=== PATIENT | male | born 1975 | race African-American/Black ===

== ENCOUNTER 2016-07-17 16:25 | Emergency (ER) | payer OTHER, MEDICARE ==
[~2016-07-17] VITALS: Ht 185.4 cm; Wt 99.8 kg
[~2016-07-17 16:25] MED LIST: ASPIRIN EC81 M1 PO; FLEXERIL 5MG TAB5 MG PO; FOLIC ACID1 M1 PO; LOSARTAN POTASS25 MG PO; OXYCODONE5 MG PO; ULTRAM50 M1 PO
--- NOTE | 2016-07-17 17:20 | RADIOLOGY REPORT ---
EXAMINATION: XR ANKLE, LEFT CLINICAL INFORMATION: Pain and swelling COMPARISON: None TECHNIQUE: AP, lateral, and mortise views of the left ankle. FINDINGS: There is no evidence of acute fracture or dislocation. Subcortical lucencies and sclerotic changes noted in the talus. Differential possibility includes osteochondral injury with surrounding sclerosis. Degenerative changes with osteophyte formations and decrease joint space noted in the talonavicular joint. Soft tissue swelling surrounding the ankle. IMPRESSION: Lucent foci of sclerosis involving the talar bone may represent osteochondral injury. Lucent bone lesions with surrounding sclerosis are included in the differential possibility. No acute osseous abnormality. Soft tissue swelling.
[2016-07-17] MEDS ORDERED: PERCOCET 5-3251 EACH PO (19:25)
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
[2016-07-17] MEDS ORDERED: BUTALB-ACETAMI1 EACH PO (19:40)
[2016-07-17 19:57] VITALS: BP 138/73
== END 2016-07-17 19:58 ==
LOC: ERH 16:25
DX: S93.602A Unspecified sprain of left foot, initial encounter (principal); M93.972 Osteochondropathy, unspecified, left ankle and foot; X58.XXXA Exposure to other specified factors, initial encounter; Y92.9 Unspecified place or not applicable; Y93.9 Activity, unspecified
CPT/HCPCS: 73610-LT

== ENCOUNTER 2017-11-18 14:24 | Inpatient (IN) | payer OTHER, MEDICARE ==
[~2017-11-18] VITALS: Ht 185.4 cm; Wt 84.9 kg
[~2017-11-18 14:24] MED LIST changes: +BUTALB-ACETAMI1 EACH PO; +CYCLOBENZAPRINE10 M1 PO; +MARI PO; +PERCOCET 5-3251 EACH PO
--- NOTE | 2017-11-18 14:54 | ED AMS/SEIZURE/WEAK/DIZZY ---
History of Present Illness General Chief Complaint: Altered Mental Status Stated Complaint: AMS Source: patient Exam Limitations: clinical condition Vital Signs & Intake/Output Vital Signs & Intake/Output Vital Signs Date Time Temp Pulse Resp B/P B/P Pulse O2 O2 Flow FiO2 Mean Ox Delivery Rate 11/18 2030 97 Room Air 11/18 1829 99.6 117 19 166/77 100 Nasal 1.5L Cannula 11/18 1656 98.9 119 17 155/74 96 Nasal 2.0L Cannula 11/18 1541 100.2 122 11/18 1434 101.7 138 24 138/76 92 Nasal 2.0L Cannula Allergies Coded Allergies: ibuprofen (From MOTRIN) (GI 12/17/16) propofol (HARD TO WAKE UP 07/17/16) Reconcile Medications Aspirin (Ecotrin*) 81 MG TABLET.DR 1 TAB PO DAILY HEART/BLOOD (Reported) Cannabis (Marijuana Oil) 1 amp AMP 1 A PO AD PRN SICKLE CELL ANEMIA (Reported ) Cyclobenzaprine HCl 10 MG TABLET 1 TAB PO Q8P PRN PAIN Folic Acid 1 MG TABLET 1 TAB PO DAILY SUPPLEMENT (Reported) Triage Note: PT BIBA FROM HOME C/C AMS, LETHARGY, AGGITATION SINCE SATURDAY. HX OF SICKLE CELL ANEMIA. PER EMS PT LIVES WITH ROOMMATE WHO STATES PATIENT BEHAVES IN THIS MANNER DURING SICKLE CELL CRISIS. PT UNABLE TO VERBALIZE COMPLAINTS AT THIS TIME. PER EMS PT WAS COMBATIVE AND UNCOOPERATIVE AT HOME, GIVEN 5 MG IM VERSED PRIOR TO LEAVING HOME. ON PEER BY PD PER DR. TRUONG INSTRUCTIONS. SKIN HOT AND DRY, TEMP 101.7. Triage Nurses Notes Reviewed? yes Onset: Gradual HPI: 42yo male with hx of sickle cell disease brought in by ambulance from home for altered mental status lethargy, agitation. Patient was medicated with Versed in route due to his agitation. Patient's roomate was concerned about patient's behaviour however patient was uncooperative and brought here on PEER per Dr. Truong. HPI is limited d/t patient's AMS, he cannot provide a history. He arrives tachycardic, hypoxic and febrile. (Elda NAPOLES,Sarah Rodriguez) Past History Travel History Traveled to [place] past 21 day No Medical History Any Pertinent Medical History? see below for history Neurological: ANEURYSM EENT: NONE Cardiovascular: PULMONARY HTN Respiratory: NONE Gastrointestinal: NONE Hepatic: "SICKLE CELL STUFF" Renal: NONE Musculoskeletal: CHRONIC PAIN Psychiatric: NONE Endocrine: NONE Blood Disorders: sickle cell disease Cancer(s): NONE Surgical History Surgical History: non-contributory Psychosocial History Who do you live with Friend What is your primary language [place] Tobacco Use: Cognitive Impairment Family History Hx Contributory? No (Sarah Ley) Review of Systems Review of Systems Constitutional: Reports: see HPI. EENTM: Reports: no symptoms. Respiratory: Reports: no symptoms. Cardiovascular: Reports: see HPI. GI: Reports: no symptoms. Genitourinary: Reports: no symptoms. Musculoskeletal: Reports: no symptoms. Skin: Reports: no symptoms. Neurological/Psychological: Reports: see HPI. Hematologic/Endocrine: Reports: no symptoms. Immunologic/Allergic: Reports: no symptoms. All Other Systems: Reviewed and Negative Comments ROS limited d/t AMS (Sarah Ley) Physical Exam Physical Exam General Appearance: no apparent distress, lethargic Head: atraumatic, normal appearance Eyes: Bilateral: normal appearance, PERRL, EOMI. Ears, Nose, Throat: normal ENT inspection, hearing grossly normal Neck: normal inspection, supple, full range of motion Respiratory: normal breath sounds, no respiratory distress, lungs clear Cardiovascular: tachycardia Gastrointestinal: normal bowel sounds, soft, non-tender, no organomegaly Back: normal inspection, normal range of motion Extremities: normal range of motion Neurologic/Psych: awake, oriented to person only, falls asleep during questioning, unable to participate in exam Skin: intact, normal color, warm/dry Comments: EXAM limited d/t AMS Core Measures ACS in differential dx? Yes CVA/TIA Diagnosis No Sepsis Present: No Sepsis Focused Exam Completed? No (Sarah Ley) Progress Differential Diagnosis: arrythmia, alcohol intoxication, anemia, CVA/stroke, dehydration, encephalitis, electrolyte imbalance, hypoxia, intracranial Hem., intracranial mass/tumor, pneumonia, sepsis, UTI/pyelo Plan of Care: Orders Procedure Date/time Status Nothing by Mouth 11/19 B Active Patient Data 11/18 1933 Active Saline Lock 11/18 1912 Active Misc Message 11/18 1912 Active ED Holding Orders 11/18 1912 Active Admit to inpatient 11/18 1912 Active Code Status 11/18 1912 Active Intake & Output 11/18 1625 Active Add-on Test (ER Only) 11/18 1616 Active ARTERIAL BLOOD GAS (GEN) 11/18 1507 Complete Add-on Test (ER Only) 11/18 1501 Active URINE DRUG SCREEN FOR ER ONLY 11/18 1501 Complete Pathway - chart 11/18 1454 Active Vital Signs 11/18 1454 Active CULTURE,URINE 11/18 1453 Active BLOOD CULTURE 11/18 1453 Active URINALYSIS 11/18 1453 Complete LACTIC ACID 11/18 1453 Complete COMPREHENSIVE METABOLIC PANEL 11/18 1453 Complete CBC WITHOUT DIFFERENTIAL 11/18 1453 Complete TROPONIN LEVEL 11/18 1450 Complete PARTIAL THROMBOPLASTIN TIME 11/18 1450 Complete PROTHROMBIN TIME 11/18 1450 Complete ETHANOL 11/18 1450 Complete TYPE & SCREEN (NOT X-MATCH) 11/18 1450 Active EKG 11/18 1439 Active Current Medications Sig/Jaquelin Start time Last Medication Dose Stop Time Status Admin Sodium Chloride 2,449.41 ML ONCE 11/18 1500 AC 11/18 (Normal Saline 0.9%) 1513 Laboratory Tests 11/18/17 1753: Lactic Acid Cancelled 11/18/17 1705: Urine Opiates Screen 221, Methadone Screen < 40, Barbiturate Screen < 60, Ur Phencyclidine Scrn < 6.00, Amphetamines Screen < 100, U Benzodiazepines Scrn > 800 H, Urine Cocaine Screen < 50, Urine Cannabis Screen > 80.00 H, Urinalysis LIGHT H, Urine Color YEL, Urine Clarity HAZY H, Urine pH 6.0, Ur Specific [place] 1.020, Urine Protein 100 H, Urine Ketones NEG, Urine Nitrite NEG, Urine Bilirubin NEG@ICTO, Urine Urobilinogen 2.0 H, Ur Leukocyte Esterase NEG, Ur Microscopic SEDIMENT EXAMINED, Urine RBC 3-5, Urine WBC RARE, Ur Epithelial Cells FEW, Hyaline Casts RARE H, Granular Casts FEW H, Urine Hemoglobin SMALL H, Urine Glucose NEG 11/18/17 1535: pH 7.44, pCO2 25 L, pO2 91, HCO3 17 L, ABG O2 Sat (Measured) 91.0 L, P-50 ( Temp Corrected) Y, Carboxyhemoglobin 2.6, O2 Concentration % NC, Temperature 100.2 H, O2 Delivery Method 2L, Phlebotomy Draw Site RIGHT RADIAL 11/18/17 1450: Anion Gap 13, Estimated GFR 47 L, BUN/Creatinine Ratio 17.5, Glucose 103 H, Lactic Acid 1.2, Calcium 9.0, Total Bilirubin 4.7 H, AST 50, ALT 30, Alkaline Phosphatase 216 H, Troponin I 0.04, Total Protein 7.8, Albumin 3.8, Globulin 4.0, Albumin/Globulin Ratio 1.0 L, PT 15.2 H, INR 1.39 H, APTT 28, CBC w Diff MAN DIFF ORDERED, RBC 2.34 L, MCV 88.5, MCH 30.9, MCHC 34.9, RDW 22.1 H, MPV 8.6, Segmented Neutrophils 84 H, Band Neutrophils 1, Lymphocytes 9 L, Monocytes 6, Nucleated RBCs 2 H, Platelet Estimate INCREASED, Polychromasia 2+, Hypochromic-Microcytic 2+, Poikilocytosis 3+, Basophilic Stippling 1+, Anisocytosis 3+, Schistocytes , Serum Alcohol < 10.0 Microbiology 11/18 1732 BLOOD: Blood Culture - RECD 11/18 1705 URINE ROUT: Urine Culture - RECD 11/18 1500 BLOOD: Blood Culture - RECD Patient's chest x-ray shows right lower lobe pneumonia. Labs show leukocytosis. Patient has stable anemia. He also has stable elevated bilirubin. Patient has mild acute kidney injury compared to prior studies. Patient given sepsis protocol fluid hydration given abnormal vital signs upon presentation of her lactic acid is stable. Patient started on IV antibiotics for pneumonia. His EKG cyst sinus tachycardia with nonspecific changes. For this reason patient admitted to telemetry. Dr. Truong spoke with Dr. Ortiz regarding admission. Diagnostic Imaging: Viewed by Me: Radiology Read, CT Scan. Discussed w/RAD: Radiology Read, CT Scan. Radiology Impression: PATIENT: CAROL KISER PRESENT AGE: 42 PATIENT ACCOUNT NO: [id number] : 73 LOCATION: [facility] ORDERING PHYSICIAN: Sarah NAPOLES SERVICE DATE: 11/18/17 EXAM TYPE: CAT - CT HEAD WO IV CONTRAST EXAMINATION: CT HEAD WITHOUT CONTRAST CLINICAL INFORMATION: Altered mental status. COMPARISON: CT head 01/24/2011. TECHNIQUE: Contiguous axial imaging was performed from the skull base to vertex without intravenous administration of contrast. DLP: 780.8 mGy-cm FINDINGS: Surgical clip at the skull base to the left of the sella turcica. There is no evidence of acute intracranial hemorrhage or territorial infarction. No abnormal mass effect or midline shift is seen. Yu to white matter differentiation is well preserved. No extra-axial fluid collections are identified. The ventricles are normal in size. There is no abnormal attenuation within the brain parenchyma. The osseous structures and soft tissues are normal. The mastoid air cells and visualized portions of the paranasal sinuses are well aerated. IMPRESSION: No acute intracranial pathology. DICTATED BY: Bandar Whelan MD DATE/TIME DICTATED:1631 TOLL LINE INSPECTOR:MARK DATE/TIME TRANSCRIBED:11/18/171631 CONFIDENTIAL, DO NOT COPY WITHOUT APPROPRIATE AUTHORIZATION. <Electronically signed in Other Vendor System> SIGNED BY: Bandar Whelan MD 11/18/171638 CXR Impression: PATIENT: CAROL KISER PRESENT AGE: 42 PATIENT ACCOUNT NO: [id number] : 73 LOCATION: [facility] ORDERING PHYSICIAN: Sarah NAPOLES SERVICE DATE: 11/18/17 EXAM TYPE: RAD - XRY-CHEST XRAY, TWO VIEWS EXAMINATION: CHEST 2 VIEWS CLINICAL INFORMATION: Fever. Tachycardia. COMPARISON: 11/09/2017. TECHNIQUE: AP seated frontal and lateral views of the chest were obtained. FINDINGS: The cardiac silhouette is enlarged, though stable. There is a right lower lobe infiltrate. There are likely trace bilateral pleural effusions. The osseous structures are stable with a right humeral prosthesis identified. IMPRESSION: Right lower lobe infiltrate concerning for pneumonia. Recommendation is for a followup chest series to be obtained following treatment and/or resolution of symptoms to assure resolution of this appearance. DICTATED BY: Jose Luis Herbert MD DATE/TIME DICTATED:11/18/171652 TOLL LINE INSPECTOR:MARK DATE/TIME TRANSCRIBED:11/18/171652 CONFIDENTIAL, DO NOT COPY WITHOUT APPROPRIATE AUTHORIZATION. <Electronically signed in Other Vendor System> SIGNED BY: Jose Luis Herbert MD 11/18/171657 Initial ED EKG: sinus tachycardia @131bpm, nonspecific ST changes (Sarah Ley) Departure Departure Disposition: STILL A PATIENT Condition: Stable Clinical Impression Primary Impression: Pneumonia Qualifiers: Pneumonia type: due to unspecified organism Laterality: right Lung location: lower lobe of lung Qualified Code: J18.1 - Lobar pneumonia, unspecified organism Secondary Impressions: Acute electrocardiogram changes Acute kidney injury Altered mental status Qualifiers: Altered mental status type: unspecified Qualified Code: R41.82 - Altered mental status, unspecified Referrals: Patient Has No Primary Care Dr (PCP/Family) Departure Forms: Customer Survey General Discharge Information Admission Note Spoke With: Albertina Ohara MD Documentation of Exam: Documentation of any treatments & extenuating circumstances including Concerns Regarding Discharge (functional status, medication knowledge or non-compliance, living conditions, etc.) that warrant an admission rather than observation: [ Pneumonia with elevated white blood cells, persistent tachycardia, fever requiring IV antibiotics, telemetry monitoring for EKG changes, IV fluids for acute kidney injury for premature discharge medically unsafe] (Elda NAPOLES,Sarah Rodriguez) PA/OBIEE REPORT DEVELOPER Co-Sign Statement Statement: ED Attending supervision documentation- [X] I saw and evaluated the patient. I have also reviewed all the pertinent lab results and diagnostic results. I agree with the findings and the plan of care as documented in the PA's/OBIEE REPORT DEVELOPER's documentation. [] I have reviewed the ED Record and agree with the PA's/OBIEE REPORT DEVELOPER's documentation. [] Additions or exceptions (if any) to the PAs/OBIEE REPORT DEVELOPER's note and plan are summarized below: [] 42-year-old male presented to the emergency department with altered mental status, history of sickle cell disease, he had a be transported by EMS and police to the ED. He is febrile, tachycardic, chest x-ray concerning for lower lobe pneumonia. On my evaluation he was awake and responded appropriately. Heart rate has improved with IV fluids. He was admitted for IV antibiotics, and treatment of sickle cell crisis. (Sherman Truong DO)
[2017-11-18 15:08] LABS: HEMATOCRIT 20.7 % (42-52); MEAN CORPUSCULAR HGB 30.9 PG (27.0-31.0); MEAN CORPUSCULAR HGB CONC 34.9 G/DL (33.0-37.0); MEAN CORPUSCULAR VOLUME 88.5 FL (80.0-94.0); MEAN PLATELET VOLUME 8.6 FL (7.4-10.4); PLATELET COUNT 512 /CUMM (130-400); RBC DISTRIBUTION WIDTH 22.1 % (11.5-14.5); RED BLOOD CELL CT 2.34 /CUMM (4.70-6.10); WHITE BLOOD CELL COUNT 14.3 /CUMM (4.8-10.8)
[2017-11-18 15:29] LABS: PT 15.2 SEC (9.4-12.5); PTT 28 SEC (25-37)
--- NOTE | 2017-11-18 16:39 | CT SCAN REPORT ---
EXAMINATION: CT HEAD WITHOUT CONTRAST CLINICAL INFORMATION: Altered mental status. COMPARISON: CT head 01/24/2011. TECHNIQUE: Contiguous axial imaging was performed from the skull base to vertex without intravenous administration of contrast. DLP: 780.8 mGy-cm FINDINGS: Surgical clip at the skull base to the left of the sella turcica. There is no evidence of acute intracranial hemorrhage or territorial infarction. No abnormal mass effect or midline shift is seen. Yu to white matter differentiation is well preserved. No extra-axial fluid collections are identified. The ventricles are normal in size. There is no abnormal attenuation within the brain parenchyma. The osseous structures and soft tissues are normal. The mastoid air cells and visualized portions of the paranasal sinuses are well aerated. IMPRESSION: No acute intracranial pathology.
--- NOTE | 2017-11-18 16:58 | RADIOLOGY REPORT ---
EXAMINATION: CHEST 2 VIEWS CLINICAL INFORMATION: Fever. Tachycardia. COMPARISON: 11/09/2017. TECHNIQUE: AP seated frontal and lateral views of the chest were obtained. FINDINGS: The cardiac silhouette is enlarged, though stable. There is a right lower lobe infiltrate. There are likely trace bilateral pleural effusions. The osseous structures are stable with a right humeral prosthesis identified. IMPRESSION: Right lower lobe infiltrate concerning for pneumonia. Recommendation is for a followup chest series to be obtained following treatment and/or resolution of symptoms to assure resolution of this appearance.
--- NOTE | 2017-11-18 19:50 | History & Physical ---
Tyree Lynch 11/18/171948: General Information and HPI MD Statement: I have seen and personally examined CAROL KISER and documented this H&P. The patient is a 42 year old M who presented with a patient stated chief complaint of [altered mental status and agitation]. Source of Information: patient Exam Limitations: unable to give history History of Present Illness: The patient is a 42-year-old woman with past medical history significant for sickle cell anemia, hypertension, chronic pain, who has been brought in by ambulance due to altered mental status, lethargy, and agitation which was noticed by a friend During the interview patient was confused and was unable to give history. Based on the data collected from the reports from emergency room, the patient has arrived with tachycardia, fever, and decreased O2 saturation. During the interview and physical examination the patient was confused, he answers "okay" to all the questions. Per reports from the ER staff, his family came to the ER shortly but left even before giving information to healthcare providers. Imaging: Head CT scan: Showed no acute pathology Chest x-ray: Showed right lower lobe infiltration which is consistent with pneumonia EKG: Normal sinus rhythm, heart rate 131, left ventricular hypertrophy, T inversion in V5 V6 Allergies/Medications Allergies: Coded Allergies: ibuprofen (From MOTRIN) (GI 12/17/16) propofol (HARD TO WAKE UP 07/17/16) Home Med list Aspirin (Ecotrin*) 81 MG TABLET.DR 1 TAB PO DAILY HEART/BLOOD (Reported) Cannabis (Marijuana Oil) 1 amp AMP 1 A PO AD PRN SICKLE CELL ANEMIA (Reported ) Cyclobenzaprine HCl 10 MG TABLET 1 TAB PO Q8P PRN PAIN Folic Acid 1 MG TABLET 1 TAB PO DAILY SUPPLEMENT (Reported) Compliance With Home Meds: UNKNOWN Past History Travel History Traveled to [place] past 21 day No Medical History Neurological: ANEURYSM EENT: NONE Cardiovascular: PULMONARY HTN Respiratory: NONE Gastrointestinal: NONE Hepatic: "SICKLE CELL STUFF" Renal: NONE Musculoskeletal: CHRONIC PAIN Psychiatric: NONE Endocrine: NONE Blood Disorders: sickle cell disease Cancer(s): NONE Surgical History Surgical History: non-contributory Review of Systems Review of Systems Constitutional: Reports: see HPI. EENTM: Reports: see HPI. Cardiovascular: Reports: see HPI. Respiratory: Reports: see HPI. GI: Reports: see HPI. Genitourinary: Reports: see HPI. Musculoskeletal: Reports: see HPI. Skin: Reports: see HPI. Neurological/Psychological: Reports: see HPI. Hematologic/Endocrine: Reports: see HPI. Immunologic/Allergic: Reports: see HPI. Exam & Diagnostic Data Last 24 Hrs of Vital Signs/I&O Vital Signs Date Time Temp Pulse Resp B/P B/P Pulse O2 O2 Flow FiO2 Mean Ox Delivery Rate 11/19 0624 98 Nasal 2.0L Cannula 11/19 0241 99.8 11/19 0233 96 Nasal 2.0L Cannula 11/19 0200 99.8 113 22 122/58 97 Nasal 2.0L Cannula 11/19 0135 98.9 113 18 125/65 100 Room Air 11/18 2226 99.5 114 18 155/70 91 Room Air 11/18 2031 97 Room Air 11/18 1829 99.6 117 19 166/77 100 Nasal 1.5L Cannula 11/18 1656 98.9 119 17 155/74 96 Nasal 2.0L Cannula 11/18 1541 100.2 122 11/18 1434 101.7 138 24 138/76 92 Nasal 2.0L Cannula Intake & Output 11/19 1600 11/19 0800 11/19 0000 Intake Total 946 Output Total Balance 946 Intake, IV 946 Number 0 Bowel Movements Patient 193 lb Weight Weight Bed scale Measurement Method Physical Exam General Appearance Drowzy, not orient, does not follow commands Skin No Rashes Skin Temp/Moisture Exam: Warm/Dry Sepsis Skin Exam (color): Normal for Ethnicity HEENT not co-operative Neck Supple, No JVD Cardiovascular Regular Rate, Normal S1, Normal S2, tricuspid 3/6 murmur Lungs right lower lobe crackles Abdomen Normal Bowel Sounds, Soft Neurological not co-operative, MP 4/5 x 4, does not follow commands, does not repeat sentences. Extremities Normal Pulses Vascular Normal Pulses, Pulses Symmetrical Sepsis Peripheral Pulse Location: Dorsalis Pedis Sepsis Peripheral Pulse Exam: Normal Sepsis Cap Refill Exam: <2 Sec Assessment/Plan Assessment: He is a 42-year-old man with past medical history significant for sickle cell anemia who was brought in ER by his roommate for evaluation of altered mental status, agitation, and lethargy. During the interview and physical exam the patient was drowsy, was not able to follow comments, or repeat a sentence. He was tachycardic around 120s, febrile with a temperature of 101.7. He had confusion with decreased breathing sounds in right lower lobe and bibasilar crackles. He had leukocytosis of 14.3, hemoglobin was low to 7.2 with a hematocrit of 20.7. Hyponatremia of 130, with a high creatinine of 1.6. Troponin was 0.04. His urine toxicology was positive for marijuana, opiates, benzodiazepines. His head CT scan was unremarkable, while his chest x-ray showed right lower lobe consolidation, which is probably pneumonia. Based on sepsis criteria and on the background of his sickle cell anemia patient has fever, tachycardia, and leukocytosis and he meets the criteria for sepsis. Patient is placed on ceftazidime and vancomycin. He is admitted to telemetry for monitoring, IV fluids and antibiotics, and hematology consultation. Problem list: Altered mental status, possibly toxic metabolic encephalopathy Possible right lower lobe pneumonia, Sepsis Probable acute chest syndrome Acute on chronic sickle cell anemia Hyponatremia Sickle cell anemia Acute kidney injury, probably prerenal As Ranked By This Provider Problem List: 1. Altered mental status Qualifiers Altered mental status type: unspecified Qualified Code: R41.82 - Altered mental status, unspecified 2. Pneumonia Qualifiers Pneumonia type: due to unspecified organism Laterality: right Lung location: lower lobe of lung Qualified Code: J18.1 - Lobar pneumonia, unspecified organism 3. Sepsis 4. Acute kidney injury 5. 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 Core Measures/Misc (01/06) Acute Coronary Syndrome ACS Diagnosis: No Congestive Heart Failure Congestive Heart Failure Diagnosis No Cerebrovascular Accident CVA/TIA Diagnosis: No VTE (View Protocol) VTE Risk Factors Age>40 No Mechanical VTE Prophylaxis d/t N/A MechProphylax Ordered No VTE Pharm Prophylaxis d/t NA PharmProphylax ordered Sepsis (View protocol) Sepsis Present: Yes If YES complete Sepsis Event Note If YES complete Sepsis Event Note Richard Morris MD 11/18/17 2150: Core Measures/Misc (01/06) Sepsis (View protocol) If YES complete Sepsis Event Note If YES complete Sepsis Event Note Resident Review Statement Resident Statement: examined this patient, discussed with internal controls consultant, agreed with internal controls consultant, reviewed EMR data (avail) Other Findings: History of present illness 42-year-old man with past medical history of sickle cell anemia, subarachnoid hemorrhage, brain aneurysm, and pulmonary hypertension brought in by ambulance for evaluation of lethargy, agitation, and altered mental status. Collateral information was obtained from ED provider and EMS as patient was altered and unable to offer subjective complaints or review of systems. Per EMS patient lives with his roommate who stated that he apparently behaves in this manner during a "sickle cell crisis". He was seen to be combative and uncooperative at home for which she was given 5 mg of intramuscular Versed. He was then transported to the [facility] ED for further evaluation. Subjective complaints and review of systems were unobtainable due to altered mental status. Objective Vitals: Temp 98.9-1 1.7, HR 117-138, RR 17-24, BP 138-1 6 6/74-76, SPO2 92-100% on 1.5 L Physical exam -General: Well-developed confused appearing young black man in no acute distress -HEENT: NCAT, PERRLA, EOMI, anicteric sclera, moist mucous membranes -Neck: Supple, no JVD, trachea midline, no accessory respiratory muscle use -Cardio: 3/6 systolic murmur in tricuspid area -Pulmonary: Diminished right lower lobe airflow with bibasilar crackles -Abdomen: Soft, nontender, nondistended, bowel sounds intact -Neuro: Awake but not alert, oriented x1, spontaneous movement of all 4 extremities, cranial nerves II through XII grossly intact, limited neurologic exam -Extremities: Normal pulses, no edema Labs/imaging/studies -CBC: WBC 14.3, hemoglobin 7.2, hematocrit 20.7, platelet 512 -BMP: Sodium 130, potassium 4.9, chloride 97, CO2 20, BUN 28, creatinine 1.6, anion gap 13, glucose 103 -LFT: T bili 4.7, AST 50, ALT 30, ALP 216 -Miscellaneous: Troponin I 0.04, INR 1.39, lactic 1.2, EtOH <10 -Urine toxicology: Positive for benzos diazepam, marijuana, and opiate -Urinalysis: Unremarkable except for small amount of hemoglobin -ABG: PH 7.44, PCO2 25, P O2 91, HCO3 17 -EKG: Sinus tachycardia with LVH by voltage and T-wave inversions V5-V6 -Echocardiogram 09/12/11: LVEF 55% without regional wall motion abnormalities -CXR: Right lower lobe infiltrate concerning for pneumonia. -CT head without IV contrast: No acute intracranial pathology. Assessment 42-year-old man with multiple medical problems significant for sickle cell anemia seen for evaluation of lethargy, agitation, and altered mental status. Presently patient is unable to offer subjective complaints or review of systems. Vital signs are significant for temp 1 1.7 and HR 117-138. Physical examination demonstrates a confused man but otherwise no acute distress with diminished right lower lobe airflow and bibasilar crackles. Significant labs include WBC 14.3, hemoglobin/hematocrit 7.2/20.7, sodium 130, creatinine 1.6, troponin I 0.04, and positive U tox for benzos, marijuana, and opiates. Chest x -ray demonstrated a right lower lobe consolidation and CT head was unremarkable. EKG demonstrated sinus tachycardia. In the ED patient received acetaminophen, ceftriaxone, azithromycin, and normal saline at 30 cc/kg after blood cultures and urine cultures were obtained. Clinically patient appears to have altered mental status secondary to a toxic metabolic encephalopathy in the context of a right lower lobe pneumonia. Patient meets sepsis criteria by temperature, tachycardia, and leukocytosis. Given patient's history of sickle cell anemia patient should be covered with broad-spectrum antibiotics. Patient is being admitted to the telemetry floor for telemetry monitoring, intravenous antibiotics/fluids, and hematology consult. Problem list -Altered mental status, possible toxic metabolic encephalopathy -Right lower lobe consolidation, possible healthcare associated pneumonia -Sepsis -chest pain with radiographic changes, probable acute chest syndrome -Acute on chronic sickle cell anemia -Acute kidney injury, likely prerenal azotemia -Hyponatremia -History of sickle cell anemia -History of subarachnoid hemorrhage -History of brain aneurysm -Pulmonary hypertension Plan -Admit to telemetry -Telemetry monitoring -Total respiratory care -Normal saline at 100 mL/h -Vancomycin / Ceftazidime -Consult with hematology for acute on chronic sickle cell anemia -Blood cultures 2, urine culture, sputum culture -strep/Legionella urinary antigen -Type and cross -Transfuse PRBC to hemoglobin >7 as needed -Pain control with acetaminophen and Dilaudid -NPO while altered, restart diet as tolerated -DVT prophylaxis with ALPS -Full code Mayda AGUIRRE,Albertina 11/19/178: Core Measures/Misc (01/06) Sepsis (View protocol) If YES complete Sepsis Event Note If YES complete Sepsis Event Note Attending MD Review Statement Attending Statement Attending MD Statement: examined this patient, discuss w/resident/PA/LABEL PASTER, agreed w/resident/PA/LABEL PASTER Attending Assessment/Plan: This is a 42-year-old male with a past medical history significant for sickle cell disease with a baseline hemoglobin in the 6 range, pulmonary hypertension and a recent ER visit for evaluation of chest pain presenting to the hospital with changes in his mental status, chest discomfort and evidence of right lower lung consolidation on chest x-ray. One comparison to his CTA done 1 week ago he had atelectatic changes present at that time. We will cover patient empirically for possible community-acquired pneumonia, monitor LDH and reticulocyte count and consult hematology in the morning.
[2017-11-19] VITALS (7 sets, daily range): BP systolic 106–150; BP diastolic 50–64
--- NOTE | 2017-11-19 07:37 | Cons- CRCU ---
ShenPatel 11/19/17 0736: General Information and HPI Consulting Request Date of Consult: 11/19/17 Requested By: Dr. Ohara Reason for Consult: Sepsis due to HCAP Source of Information: patient, EMS Exam Limitations: no limitations History of Present Illness: 42-year-old male with past medical history of sickle cell disease, subarachnoid hemorrhage, brain aneurysm and pulmonary hypertension was brought to ED with chief complaint of altered mental status, agitation and lethargic. Patient was admitted last night and on imaging study he was found to have right midlung infiltrate. Patient was meeting criteria of sepsis. Patient was treated sepsis candidate to pneumonia. This morning patient was seen. His mentation has been improved. Patient reported that he knew about the sickle cell crisis and he was brought to ED but he doesn't remember all the events. This morning he denied chest pain, palpitation, nausea, vomiting, chills, fever, lightheadedness, abdominal pain and dysuria. Patient is feeling much improved. He reported that last time he saw his child and family counselor at [place] on this month. He reported that he is up to date with pneumonia vaccination and his pain is intact. His child and family counselor is Dr. Arpit Perkins. Allergies/Medications Allergies: Coded Allergies: ibuprofen (From MOTRIN) (GI 12/17/16) propofol (HARD TO WAKE UP 07/17/16) Home Med List: Aspirin (Ecotrin*) 81 MG TABLET. 1 TAB PO DAILY HEART/BLOOD (Reported) Cannabis (Marijuana Oil) 1 amp AMP 1 A PO AD PRN SICKLE CELL ANEMIA (Reported ) Cyclobenzaprine HCl 10 MG TABLET 1 TAB PO Q8P PRN PAIN Folic Acid 1 MG TABLET 1 TAB PO DAILY SUPPLEMENT (Reported) Current Medications: Current Medications Sig/Jaquelin Start time Last Medication Dose Route Stop Time Status Admin Acetaminophen 1,000 MG Q6P PRN 11/18 2200 AC 11/19 IV 0241 Acetaminophen 0 .STK-MED ONE 11/18 193 DC IV Acetaminophen 1,000 MG ONCE ONE 11/18 191 DC 11/18 N/A 1 UNIT IV 11/18 Azithromycin 500 MG ONCE ONE 11/18 1730 DC 11/18 Sodium Chloride 250 ML IV 11/18 182 175 Ceftazidime 0 .STK-MED ONE 11/18 2217 DC .ROUTE Ceftazidime 1,000 MG Q12 11/188 AC 11/18 IV 2228 Ceftriaxone Sodium 0 .STK-MED ONE 11/18 1743 DC .ROUTE Ceftriaxone Sodium 1,000 MG ONCE ONE 11/18 1730 DC 11/18 IV 11/18 1731 1751 Hydromorphone HCl 0.4 MG Q4P PRN 11/19 0145 AC 11/19 IV 0239 Sodium Chloride 1,000 ML Q10H 11/18 2200 AC 11/18 IV 2220 Sodium Chloride 2,449.41 ML ONCE 11/18 1500 AC 11/18 IV 1513 Vancomycin HCl 1,250 MG DAILY 11/18 2200 AC 11/19 Sodium Chloride 250 ML IV 0150 Review of Systems Review of Systems Constitutional: Denies: chills, fever, weakness. EENTM: Reports: no symptoms. Cardiovascular: Denies: chest pain, palpitations, syncope. Respiratory: Denies: cough, short of breath, sputum production, wheezing. GI: Denies: abdominal pain, diarrhea, nausea, vomiting. Genitourinary: Reports: no symptoms. Musculoskeletal: Denies: back pain, joint pain. Skin: Reports: no symptoms. Neurological/Psychological: Reports: no symptoms. Past History Travel History Traveled to [place] past 21 day No Medical History Neurological: ANEURYSM EENT: NONE Cardiovascular: PULMONARY HTN Respiratory: NONE Gastrointestinal: NONE Hepatic: "SICKLE CELL STUFF" Renal: NONE Musculoskeletal: CHRONIC PAIN Psychiatric: NONE Endocrine: NONE Blood Disorders: sickle cell disease Cancer(s): NONE Surgical History Surgical History: non-contributory Exam & Diagnostic Data Last 24 Hrs of Vital Signs/I&O Vital Signs Date Time Temp Pulse Resp B/P B/P Pulse O2 O2 Flow FiO2 Mean Ox Delivery Rate 11/19 0624 98 Nasal 2.0L Cannula 11/19 0241 99.8 11/19 0233 96 Nasal 2.0L Cannula 11/19 0200 99.8 113 22 122/58 97 Nasal 2.0L Cannula 11/19 0135 98.9 113 18 125/65 100 Room Air 11/186 99.5 114 18 155/70 91 Room Air 11/18 2031 97 Room Air 11/18 1829 99.6 117 19 166/77 100 Nasal 1.5L Cannula 11/18 1656 98.9 119 17 155/74 96 Nasal 2.0L Cannula 11/18 1541 100.2 122 11/18 1434 101.7 138 24 138/76 92 Nasal 2.0L Cannula Intake & Output 11/19 1600 11/19 0800 11/19 0000 Intake Total 946 Output Total Balance 946 Intake, IV 946 Number 0 Bowel Movements Patient 193 lb Weight Weight Bed scale Measurement Method Physical Exam General Appearance: well developed/nourished, no apparent distress, alert, awake Head: atraumatic, normal appearance Eyes: Bilateral: normal appearance, PERRL, EOMI. Ears, Nose, Throat: normal pharynx Neck: normal inspection, supple Respiratory: chest non-tender, Decreased breath sounds on right side. Cardiovascular: regular rate/rhythm Gastrointestinal: normal bowel sounds, soft, non-tender Extremities: normal inspection, normal capillary refill, normal range of motion, no edema Neurologic/Psych: no motor/sensory deficits, awake, alert, oriented x 3 Last 48 Hrs of Labs/Nicholas: Laboratory Tests 11/19/17 0640: CBC w Diff MAN DIFF ORDERED, RBC 1.87 L, MCV 90.9, MCH 30.8, MCHC 33.8, RDW 20.0 H, MPV 8.8, Segmented Neutrophils 83 H, Band Neutrophils 2, Lymphocytes 6 L, Monocytes 9, Nucleated RBCs 1 H, Platelet Estimate ADEQUATE, Hypochromic- Microcytic 2+, Poikilocytosis 1+, Anisocytosis 2+, Target Cells 1+ 11/19/17 0600: Haptoglobin Pending 11/19/17 0430: Anion Gap 12, Estimated GFR > 60, BUN/Creatinine Ratio 22.5, Magnesium 2.2, Lactate Dehydrogenase 1767 H 11/18/17 2213: Lactic Acid < 0.5 L 11/18/17 1753: Lactic Acid Cancelled 11/18/17 1705: Urine Opiates Screen 221, Methadone Screen < 40, Barbiturate Screen < 60, Ur Phencyclidine Scrn < 6.00, Amphetamines Screen < 100, U Benzodiazepines Scrn > 800 H, Urine Cocaine Screen < 50, Urine Cannabis Screen > 80.00 H, Urinalysis LIGHT H, Urine Color YEL, Urine Clarity HAZY H, Urine pH 6.0, Ur Specific [place] 1.020, Urine Protein 100 H, Urine Ketones NEG, Urine Nitrite NEG, Urine Bilirubin NEG@ICTO, Urine Urobilinogen 2.0 H, Ur Leukocyte Esterase NEG, Ur Microscopic SEDIMENT EXAMINED, Urine RBC 3-5, Urine WBC RARE, Ur Epithelial Cells FEW, Hyaline Casts RARE H, Granular Casts FEW H, Urine Hemoglobin SMALL H, Urine Glucose NEG 11/18/17 1535: pH 7.44, pCO2 25 L, pO2 91, HCO3 17 L, ABG O2 Sat (Measured) 91.0 L, P-50 ( Temp Corrected) Y, Carboxyhemoglobin 2.6, O2 Concentration % NC, Temperature 100.2 H, O2 Delivery Method 2L, Phlebotomy Draw Site RIGHT RADIAL 11/18/17 1450: Anion Gap 13, Estimated GFR 47 L, BUN/Creatinine Ratio 17.5, Glucose 103 H, Lactic Acid 1.2, Calcium 9.0, Total Bilirubin 4.7 H, AST 50, ALT 30, Alkaline Phosphatase 216 H, Troponin I 0.04, Total Protein 7.8, Albumin 3.8, Globulin 4.0, Albumin/Globulin Ratio 1.0 L, PT 15.2 H, INR 1.39 H, APTT 28, CBC w Diff MAN DIFF ORDERED, RBC 2.34 L, MCV 88.5, MCH 30.9, MCHC 34.9, RDW 22.1 H, MPV 8.6, Segmented Neutrophils 84 H, Band Neutrophils 1, Lymphocytes 9 L, Monocytes 6, Nucleated RBCs 2 H, Platelet Estimate INCREASED, Polychromasia 2+, Hypochromic-Microcytic 2+, Poikilocytosis 3+, Basophilic Stippling 1+, Anisocytosis 3+, Schistocytes , Retic Count 10.12 H, Serum Alcohol < 10.0 Microbiology 11/19 1316 URINE ROUT: Legionella Antigen - COMP 11/19 1316 URINE ROUT: Streptococcus pneumoniae Antigen (M - COMP Assessment/Plan CRCU Impression/Plan: Considering patient's history of sickle cell anemia, patient may have been sickle cell crisis secondary to infection. We will treat his sepsis due to community-acquired pneumonia with antibiotics. We will monitor this patient in ICU. Respiration: -Continue supplemental oxygen to keep the oxygen saturation above 92%. -Right now patient is on 2 L of oxygen we will try to titrate it if he is able to maintaining saturation. Infectious: -Patient was found to have sepsis possibly due to community-acquired pneumonia as his imaging study was showing right lower lobe infiltration. He had fever and tachycardia when he was admitted. -His sepsis has been resolved. -Patient received one dose of vancomycin and ceftriaxone and azithromycin. Right now we will continue ceftriaxone and azithromycin to cover typical and atypical bacteria. -As patient wants to leave possibly we will discharge him on moxifloxacin. Cardiovascular: -Right now patient is maintaining his blood pressure and cardiovascular pelayo he is stable. -Patient has history of pulmonary hypertension. His last echocardiogram was done in 2011 that showed ejection fraction more than 55%. Hematology: -Patient's hemoglobin has been dropped from 7.2 to 5.8 but his baseline hemoglobin is around 5.9 -Personally patient had dehydration initially. We will give him one blood transfusion today. -Patient doesn't look like in sickle cell crisis. We will check LDH and reticulocyte count. -We will follow hematology recommendations. Metabolic: -Initially patient's creatinine level was elevated but now it is back to normal. -We will monitor his electrolytes and BUN with creatinine. -Right now his metabolic profile looks normal. -We will give patient D5 half normal saline at the rate of 100 mL per hour. We will avoid isotonic fluid to prevent sickle cell lysis. Alimentary: -Initially patient was kept nothing by mouth because he was confused to prevent aspiration. Right now his mentation is good and we will start with full liquid diet. -A patient tolerated it well then we will advance the diet. -We will continue D5 half normal saline and then he started his normal diet we will discontinue it. Neurological: -Patient's mentation has been improved. He is at his baseline. DVT prophylaxis: Mechanical and subcutaneous heparin CODE STATUS: Patient is on full code but he mentioned to me that he wants to be on DNR/DNI. We will talk to him again about CODE STATUS. Problem List: 1. Community acquired pneumonia 2. Sepsis Consult Acknowledgment - Thank you for your consult request. Devan Kang MD 11/19/17 1148: Assessment/Plan CRCU Other Findings/Comments: Devan Lockett M.D. have examined this patient, reviewed available EMR data, personally reviewed images, discussed with resident/PA/GIS COORDINATOR, discussed management plan with housestaff and nursing staff, discussed managment plan all of healthcare providers, discussed management plan with patient and/or family, agreed with resident/PA/GIS COORDINATOR. The past history and parts of the chart have been autopopulated. Impression 42 year old man * admitted with sickle cell crisis - with a concern for acute chest syndrome vs. community acquired pneumonia * DEJON improved * chronic anemia Plan -in review of records pt's hemoglobin is in the 6 range -he has known pulmonary htn and murmur -he is now without a fever, no sputum, and feeling very well without any pain at all -he is not short of breath and saturating well on room air -he is fully awake and oriented and appropriate -isotonic saline changed to hypotonic fluid -abx to cover strep pneumo/atypicals - currently on ceftriaxone/zithromax - can use a quinolone upon discharge (Avelox) -hematology consultation has been cancelled at this time as the patient can f/u with his primary child and family counselor -the presentation now is most likely consistent with pneumonia given lack of symptoms now -LDH/retic were added -transfuse 1 unit prbcs, given symptoms previously -minimize o2 Declines ALPS TTS 40 min Pt may choose to leave the hospital - he was advised to wait at least another day Consult Acknowledgment - Thank you for your consult request.
[2017-11-19 07:54] LABS: MEAN PLATELET VOLUME 8.8 FL (7.4-10.4)
[2017-11-19 08:10] LABS: MEAN CORPUSCULAR HGB 30.8 PG (27.0-31.0); MEAN CORPUSCULAR HGB CONC 33.8 G/DL (33.0-37.0); MEAN CORPUSCULAR VOLUME 90.9 FL (80.0-94.0); PLATELET COUNT 451 /CUMM (130-400); RED BLOOD CELL CT 1.87 /CUMM (4.70-6.10); WHITE BLOOD CELL COUNT 12.5 /CUMM (4.8-10.8)
--- NOTE | 2017-11-19 11:15 | Admission Certification ---
Admission Certification Certification Statement - As attending physician, I certify that at the time of - admission, based on clinical presentation, severity of - symptoms, need for further diagnostic testing and - therapeutic interventions, and risk of adverse outcomes - without in-hospital treatment, in my clinical assessment, - this patient requires an acute hospital stay for a minimum - of two nights or longer. I have also considered psychsocial - factors such as support system, advanced age, financial - issues, cognitive issues, and failed out-patient treatments, - past re-admission history, safety of patient, and lack of - compliance as applicable. Specific rationale supporting this admission is: Sickle Cell Anemia Possible Acute chest syndrome vs. Pneumonia ICU level of care
[2017-11-19 18:09] LABS: MEAN CORPUSCULAR HGB CONC 33.8 G/DL (33.0-37.0); MEAN CORPUSCULAR VOLUME 88.6 FL (80.0-94.0); MEAN PLATELET VOLUME 8.7 FL (7.4-10.4); PLATELET COUNT 465 /CUMM (130-400); RBC DISTRIBUTION WIDTH 19.8 % (11.5-14.5); WHITE BLOOD CELL COUNT 11.3 /CUMM (4.8-10.8)
[2017-11-19 18:14] LABS: HEMATOCRIT 17.7 % (42-52)
[2017-11-20] VITALS (7 sets, daily range): BP systolic 112–160; BP diastolic 50–96
[2017-11-20 05:05] LABS: MEAN CORPUSCULAR HGB 29.5 PG (27.0-31.0); MEAN CORPUSCULAR HGB CONC 33.2 G/DL (33.0-37.0); MEAN CORPUSCULAR VOLUME 88.7 FL (80.0-94.0); MEAN PLATELET VOLUME 8.9 FL (7.4-10.4); PLATELET COUNT 502 /CUMM (130-400); RBC DISTRIBUTION WIDTH 20.1 % (11.5-14.5); RED BLOOD CELL CT 2.04 /CUMM (4.70-6.10)
[2017-11-20 05:28] LABS: WHITE BLOOD CELL COUNT 12.7 /CUMM (4.8-10.8)
--- NOTE | 2017-11-20 07:24 | PN- Resident CRCU ---
ShenPatel 11/20/17 0724: Subjective HPI/CRCU Issues: 42-year-old male with past medical history of sickle cell disease, subarachnoid hemorrhage, brain aneurysm and pulmonary hypertension was brought to ED with chief complaint of altered mental status, agitation and lethargic. This morning patient was seen and examined. He reported having intermittent pain in left lower chest last night but this morning he denied any chest pain. Patient denied nausea vomiting, palpitation, dizziness, abdominal pain, diarrhea , constipation and dysuria. Last night his max temperature was 101.7. Patient wanted to leave today but he was recommended to stay another day and have chest x-ray to see if his lung infiltrate improving or worsening but patient declined at that time. We walked him around and he was not able to walk normally but was limping. Later on patient changed his mind and decided to stay for 1 more day. 24 Hour Events: No overnight events except temperature max 101.7, patient tolerated full liquid diet today we will change it to regular diet. Objective Vital Signs & I&O Last 8 Hrs of Vitals and I&O: Intake & Output 11/20 1600 Intake Total 710 Output Total 1200 Balance -490 Intake, IV 350 Intake, Oral 360 Output, Urine 1200 Exam General Appearance: well developed/nourished, no apparent distress, alert, awake Head: atraumatic, normal appearance Ears, Nose, Throat: normal pharynx Neck: normal inspection, supple Respiratory: normal breath sounds, chest non-tender, no respiratory distress Cardiovascular: regular rate/rhythm Gastrointestinal: normal bowel sounds, soft, non-tender Extremities: normal inspection Cranial Nerves: normal hearing, normal speech, PERRL Skin: intact, normal color Skin Temp/Moisture Exam: Warm/Dry Current Medications: Current Medications Sig/Jaquelin Start time Last Medication Dose Route Stop Time Status Admin Acetaminophen 1,000 MG Q6P PRN 11/18 2200 AC 11/21 IV 0146 Azithromycin 500 MG 1700 11/19 1700 AC 11/20 Sodium Chloride 250 ML IV 1601 Ceftriaxone Sodium 1,000 MG Q24H 11/19 1730 AC 11/20 IV 1601 Dextrose/Sodium 1,000 ML Q10H 11/19 0830 DC 11/20 Chloride IV 0020 Hydromorphone HCl 0.4 MG Q4P PRN 11/19 0145 AC 11/21 IV 0205 Sodium Chloride 2,449.41 ML ONCE 11/18 1500 DC 11/18 IV 1513 Impression/Plan Impression/Problem List Impression: Considering patient's history of sickle cell anemia patient could have mild acute chest syndrome but that's less likely and we will treat the patient for community-acquired pneumonia with antibiotics. Patient has sinus tachycardia probably due to his temperature. Problem List: 1. Community acquired pneumonia Pain Ratin Pain Location: none Tomorrow's Labs & Rationales: cbc/bep/lfts Plan Respiratory: Patient is on room air and maintaining saturation above 92%. Respiratory pelayo patient is stable. Infectious Diseases: -Continue treating the patient for community-acquired pneumonia with ceftriaxone and azithromycin. -TRC nebulization as needed -Legionella and strep antigens are negative so far. -Sputum culture is negative -Hold the discharge we will give him azithromycin to complete a total 7 days of antibiotics. Cardiovascular: -Patient is cardiovascularly stable. We will follow him on [facility] for his sinus tachycardia possibly due to his temperature. Hematology: -Patient's H&H and stable. His baseline hemoglobin is 5.9 at this point his Hb is 6. Patient will follow his analytical clerk after the discharge. Metabolic: -Metabolically patient is stable. Alimentary: -His full liquid diet is changed to regular diet. Neurological: -Patient is neurologically stable. DVT/Prophylaxis: mechanical, pharmacological Code Status: Full Code Devan Kang MD 11/20/17 1240: Attending MD Review Statement Attending Sign Off Attending Cosign Statement: I have: examined this patient, reviewed avalbl EMR data, personally reviewd images, discussd w/resident/PA/SCREENING UNIT REGISTERED NURSE, discussed mgmt plan w/keya, discussed mgmt plan w/CM, discussed mgmt plan w/pt, agreed w/resident/PA/SCREENING UNIT REGISTERED NURSE, amended to note. Other Findings: Devan Lockett M.D. have examined this patient, reviewed available EMR data, personally reviewed images, discussed with resident/PA/SCREENING UNIT REGISTERED NURSE, discussed management plan with housestaff and nursing staff, discussed managment plan all of healthcare providers, discussed management plan with patient and/or family, agreed with resident/PA/SCREENING UNIT REGISTERED NURSE. The past history and parts of the chart have been autopopulated. Impression 42 year old man * admitted with sickle cell crisis - with a concern for acute chest syndrome vs. community acquired pneumonia * DEJON improved * chronic anemia Plan -hgb baseline - 6 -he has known pulmonary htn and murmur -if fluids are needed - only use hypotonic saline -abx to cover strep pneumo/atypicals - currently on ceftriaxone/zithromax - can use a quinolone upon discharge (Avelox) -hematology consultation has been cancelled at this time as the patient can f/u with his primary analytical clerk -the presentation now is most likely consistent with pneumonia given lack of symptoms now -s/p 1 unit prbcs, given symptoms previously -minimize o2 Declines ALPS DG to telemetry Patient wanted to leave knowing that a continued hospitalization is necessary. He initially was ready for discharge in contrast to our advice, however he chose to remain in the hospital for now.
[2017-11-20] MEDS ORDERED: ZITHROMAX500 M2 PO (10:52)
--- NOTE | 2017-11-20 10:53 | Discharge Summary ---
Hospital Course Allergies: Coded Allergies: ibuprofen (From MOTRIN) (GI 12/17/16) propofol (HARD TO WAKE UP 07/17/16) Discharge Instructions Medications at Discharge Discharge Medications: Continue taking these medications: Folic Acid (Folic Acid) 1 MG TABLET 1 Tablet ORAL DAILY Aspirin (Ecotrin*) 81 MG TABLET.DR 1 Tablet ORAL DAILY Cannabis (Marijuana Oil) 1 amp AMP 1 Applicator ORAL As Directed as needed for SICKLE CELL ANEMIA Cyclobenzaprine HCl (Cyclobenzaprine HCl) 10 MG TABLET 1 Tablet ORAL EVERY 8 HOURS NEEDED as needed for PAIN Qty = 20 Start taking the following new medications: Azithromycin (Zithromax) 500 MG TABLET 1 Tablet ORAL DAILY Qty = 6 No Refills
--- NOTE | 2017-11-20 10:58 | Transfer of Care Summary ---
Hospital Course Course Hospital Course: 42-year-old male with past medical history of sickle cell disease, subarachnoid hemorrhage, brain aneurysm and pulmonary hypertension was brought to ED with chief complaint of altered mental status, agitation and lethargic. He reported having intermittent pain in left lower chest last night but this morning he denied any chest pain. Patient denied nausea vomiting, palpitation, dizziness, abdominal pain, diarrhea, constipation and dysuria. Community Accquired pneumonia: -Less likely patient has acute chest synd as he is not meeting the criteria but with infection and dehydration he can go to acute chest syndrom considering his history of SCD. -Treating for community accquired poneumonia. -Continue treatment with ceftriaxone and azithromycine, Day 3. We will discharge the patient on azithromycin to complete total 7 days of antibiotic course. -Patient wanted to leave yesterday and then he changed his mind and decided to have a chest x-ray as he was spiking fever intermittently. On chest x-ray yesterday it showed b/l infiltrates and b/l mild pleural effusions. May need infectious disease consult. -Hematology consult was obtained initially and later on cancelled as hemotology recommended him to see his hemotologist after the discharge at [place]. -His base line Hb is 5.9, after one transfusion his Hb is 6. Assessment/Plan: Community Accquired pneumonia: -Less likely patient has acute chest synd as he is not meeting the criteria but with infection and dehydration he can go to acute chest syndrom considering his history of SCD. -Treating for community accquired poneumonia. -Continue treatment with ceftriaxone and azithromycine, Day 3. We will discharge the patient on azithromycin to complete total 7 days of antibiotic course. -Patient wanted to leave yesterday and then he changed his mind and decided to have a chest x-ray as he was spiking fever intermittently. On chest x-ray yesterday it showed b/l infiltrates and b/l mild pleural effusions. May need infectious disease consult. -Hematology consult was obtained initially and later on cancelled as hemotology recommended him to see his hemotologist after the discharge at [place]. -His base line Hb is 5.9, after one transfusion his Hb is 6. -Patient may need PT evaluation as he was not able to walk normaly yesterday.
--- NOTE | 2017-11-20 12:49 | RADIOLOGY REPORT ---
EXAMINATION: XR CHEST CLINICAL INFORMATION: Fever. Presumptive diagnosis of pneumonia. COMPARISON: Several prior chest x-rays, most recent of which is dated 11/18/2017. TECHNIQUE: 2 views of the chest were obtained. FINDINGS: The cardiomediastinal silhouette is enlarged. There are bilateral small pleural effusions with associated bibasilar opacities, likely representing atelectasis and/or pneumonia. There is thickening of the central airways and slight reticular prominence in the lungs, consistent with acute on chronic obstructive lung disease. A right shoulder hemiarthroplasty is partially included. Bony structures otherwise grossly unremarkable. IMPRESSION: Findings are suspicious for acute on chronic obstructive lung disease with bibasilar opacities, right greater than left, possibly due to atelectasis or pneumonia. Associated small bilateral pleural effusions are seen.
[2017-11-21 06:49] VITALS: BP 126/60
[2017-11-21 08:16] LABS: MEAN CORPUSCULAR HGB 29.7 PG (27.0-31.0); MEAN CORPUSCULAR HGB CONC 34.2 G/DL (33.0-37.0); MEAN CORPUSCULAR VOLUME 86.7 FL (80.0-94.0); MEAN PLATELET VOLUME 8.6 FL (7.4-10.4); PLATELET COUNT 552 /CUMM (130-400); RED BLOOD CELL CT 1.92 /CUMM (4.70-6.10)
[2017-11-21 08:40] LABS: HEMATOCRIT 16.6 % (42-52)
[2017-11-21 09:03] LABS: WHITE BLOOD CELL COUNT 9.8 /CUMM (4.8-10.8)
--- NOTE | 2017-11-21 09:57 | PN- Housestaff ---
Brown Rouse 11/21/17 0957: Subjective Follow-up For: Pneumonia versus acute chest syndrome in the setting of sickle cell crisis Tele-Events Since Last Visit: ST 103 - 122, then NSR 90 Subjective: 42-year-old male with past medical history of sickle cell disease, subarachnoid hemorrhage, brain aneurysm, and pulmonary hypertension, who was brought to the ED with the chief complaint of altered mental status, agitation and lethargy. Patient was in ICU as a telemetry hold and was transferred to our service on telemetry today. No issues overnight for transfer out of ICU. No events on telemetry monitoring. Per nursing patient was able to ambulate to the bathroom by himself. Patient was seen and examined sitting comfortably. He denies any difficulty breathing, chest tightness, chest pain, dizziness, palpitations, headaches. He mentions that he has nonradiating sharp pain in his shins that ranges from 3/10 to 10/10 throughout the day. Review of Systems Constitutional: Reports: see HPI. Objective Last 24 Hrs of Vital Signs/I&O Vital Signs Date Time Temp Pulse Resp B/P B/P Pulse O2 O2 Flow FiO2 Mean Ox Delivery Rate 11/21 1341 98.0 100 18 146/72 94 Room Air 11/21 1320 98.5 98 18 144/68 93 Room Air 11/21 0649 97.9 98 18 126/60 92 Room Air 11/21 0146 98.9 08/ 0000 Room Air 11/20 2322 98.7 100 18 112/66 93 Room Air 11/20 1834 98.4 108 24 150/50 94 Room Air 11/20 1659 99.6 11/20 1609 100.6 120 25 156/68 94 Room Air 11/20 1600 95 Room Air 11/20 1557 100.6 Intake & Output 11/21 1600 08/02 0800 08/ 0000 Intake Total 120 1050 Output Total 1050 Balance 120 0 Intake, IV 650 Intake, Oral 120 400 Output, Urine 1050 Patient 187 lb Weight Weight Bed scale Measurement Method Physical Exam General Appearance: Alert, Oriented X3, Cooperative, Mild Distress Skin: No Rashes Skin Temp/Moisture Exam: Warm/Dry Sepsis Skin Exam (color): Normal for Ethnicity HEENT: Atraumatic, PERRLA, EOMI, Mucous Membr. moist/pink Neck: Supple Cardiovascular: Normal S1, Normal S2 Lungs: Slight BL Diffuse Crackles Abdomen: Normal Bowel Sounds, Soft, No Tenderness Neurological: Normal Speech Extremities: No Edema, Normal Pulses Current Medications: Current Medications Sig/Jaquelin Start time Last Medication Dose Route Stop Time Status Admin Acetaminophen 1,000 MG .STK-MED ONE 11/21 1047 DC IV 11/21 1048 Acetaminophen 1,000 MG .STK-MED ONE 11/21 0142 DC IV 11/21 0143 Acetaminophen 1,000 MG Q6P PRN 11/18 2200 AC 11/21 IV 1633 Azithromycin 500 MG 1700 11/19 1700 AC 11/21 Sodium Chloride 250 ML IV 1647 Ceftriaxone Sodium 1,000 MG Q24H 11/19 1730 AC 11/21 IV 1647 Hydromorphone HCl 0.4 MG Q4P PRN 11/19 0145 AC 11/21 IV 1517 Last 24 Hrs of Lab/Nicholas Results Last 24 Hrs of Labs/Mics: Laboratory Tests 11/21/17 0600: Anion Gap 9, Estimated GFR > 60, BUN/Creatinine Ratio 17.1, Total Bilirubin 3.0 H, Direct Bilirubin 1.6 H, AST 39, ALT 31, Alkaline Phosphatase 239 H, Total Protein 6.1 L, Albumin 2.7 L, CBC w Diff MAN DIFF ORDERED, RBC 1.92 L, MCV 86.7, MCH 29.7, MCHC 34.2, RDW 21.0 H, MPV 8.6, Segmented Neutrophils 79 H, Lymphocytes 11 L, Monocytes 10 H, Nucleated RBCs 6 H, Platelet Estimate INCREASED, Polychromasia 1+, Hypochromic-Microcytic 2+, Poikilocytosis 2+, Anisocytosis 2+, Target Cells 1+ Assessment/Plan Assessment: The patient is a 42-year-old man with past medical history significant for sickle cell anemia, hypertension, chronic pain, who has been brought in by ambulance due to altered mental status, lethargy, and agitation. #Right lower lobe consolidation secondary to CAP/HCAP - Continue Ceftriaxone + Azithro - If patient remains afebrile, switch to oral for 7 days #Possible acute chest syndrome with radiographic changes in the setting of acute on chronic sicke cell Anemia - Last CXR: suspicious for acute on chronic obstructive lung disease with bibasilar opacities, right greater than left. Associated small bilateral pleural effusions are seen. - Monitor O2 sats #Worsening Anemia: Hct was 20 on admission, today 16.6. - Transfuse 1 PRBC today - Monitor H/H #Uncontrolled Pain 2/2 to sickle cell crisis - Pain pathway DVT ppx Full Code Problem List: 1. 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 Community acquired pneumonia Pain Ratin ((UP to)) Pain Location: Shins Pain Goal: Pain 4 or less Pain Plan: Pain Pathway Tomorrow's Labs & Rationales: CBC, BEP Lalitha AGUIRRE,Annette 11/21/17 1046: Attending MD Review Statement Attending Statement Attending MD Statement: examined this patient, discuss w/resident/PA/LOAN ANALYST, agreed w/resident/PA/LOAN ANALYST, reviewed EMR data (avail), discussed with nursing, discussed with case mgmt, amended to note Attending Assessment/Plan: Patient seen and examined. Medical record reviewed. Currently resting comfortably not in any acute distress. No issues overnight for transfer out of the intensive care unit. No events on telemetry monitoring. He is resting comfortably not in acute distress. Denies any respiratory complaints at present. Nursing staff reports that he is able to ambulate although appears a little unsteady on his feet secondary to pain. Patient admits that pain is controlled on current regimen. He is afebrile hemodynamically stable this morning but did have fever of 100.6 yesterday. On examination He has mild crackles in the lung bases bilaterally. Trace peripheral edema. Heart sounds are regular. His baseline hematocrit is 18. His hematocrit was 20 on presentation. It trended down to 17. He got a unit of blood with improvement of the hematocrit 18.9 down to 16.6 today. Recommendations: -Continue IV antibiotic therapy. If patient remains afebrile overnight he may be transitioned to oral antibiotic therapy to complete 7 days of treatment. -Would recommend optimizing his hemoglobin level with 1 unit of PRBC as he is showing evidence of ongoing hemolysis with the downward trend of his labs.
[2017-11-21 13:20] VITALS: BP 144/68
[2017-11-21 13:41] VITALS: BP 146/72
[2017-11-21 17:09] VITALS: BP 144/70
[2017-11-21 20:22] VITALS: BP 142/60
[2017-11-22 06:40] VITALS: BP 144/62
[2017-11-22] MEDS ORDERED: ZITHROMAX500 M2 PO ×2 (07:57→10:02)
[2017-11-22 08:04] LABS: MEAN PLATELET VOLUME 8.5 FL (7.4-10.4)
[2017-11-22 08:35] LABS: MEAN CORPUSCULAR HGB CONC 32.7 G/DL (33.0-37.0); MEAN CORPUSCULAR VOLUME 88.6 FL (80.0-94.0); PLATELET COUNT 610 /CUMM (130-400); RBC DISTRIBUTION WIDTH 19.6 % (11.5-14.5); WHITE BLOOD CELL COUNT 7.7 /CUMM (4.8-10.8)
[2017-11-22 08:42] LABS: HEMATOCRIT 19.5 % (42-52)
--- NOTE | 2017-11-22 09:01 | Patient Discharge Instructions ---
Discharge Instructions General Discharge Information You were seen/treated for: Pneumonia/Acute Chest Syndrome in the setting of Sickle Cell Crisis Watch for these problems: If you experience fever, chest pain, shortness of breath, palpitations, extreme fatigue or weakness, please see Primary Care Physician or ER. Special Instructions: Please follow up with Primary Care Physician for Chest X Ray (in 2 weeks) and Relish Maker in one week. Diet Continue normal diet: Yes Activity Full Activity/No Limits: Yes (As tolerated) Activity Self Limited: Yes Acute Coronary Syndrome Inclusion Criteria At DC or during hospital stay patient has or had the following: ACS DIAGNOSIS No Discharge Core Measures Meds if any: Prescribed or Continued at Discharge Meds if any: NOT Prescribed or Continued at Discharge Congestive Heart Failure Inclusion Criteria At DC or during hospital stay patient has or had the following: CHF DIAGNOSIS No Discharge Core Measures Meds if any: Prescribed or Continued at Discharge Meds if any: NOT Prescribed or Continued at Discharge Cerebrovascular accident Inclusion Criteria At DC or during hospital stay patient has or had the following: CVA/TIA Diagnosis No Discharge Core Measures Meds if any: Prescribed or Continued at Discharge Meds if any: NOT Prescribed or Continued at Discharge Venous thromboembolism Inclusion Criteria VTE Diagnosis No VTE Type NONE VTE Confirmed by (Test) NONE Discharge Core Measures - Per Current guidelines, there needs to be overlap - treatment for the first 5 days of Warfarin therapy. - If discharged on Warfarin prior to 5 days of - overlap therapy, the patient will need to be - assessed for post discharge needs including - *Post discharge parental anticoagulation - *Warfarin and/or parental anticoagulation education - *Follow up date to check INR post discharge At least 5 days overlap therapy as Inpatient No Meds if any: Prescribed or Continued at Discharge Note: Overlap Therapy is Warfarin and Anticoagulant Meds if any: NOT Prescribed or Continued at Discharge
--- NOTE | 2017-11-22 09:02 | Discharge Summary ---
Hospital Course Allergies: Coded Allergies: ibuprofen (From MOTRIN) (GI 12/17/16) propofol (HARD TO WAKE UP 07/17/16) Discharge Instructions General Discharge Information Code Status: Full Code Medications at Discharge Discharge Medications: Continue taking these medications: Folic Acid (Folic Acid) 1 MG TABLET 1 Tablet ORAL DAILY Comments: Last Taken:11/22/17 Time:0830 AM Aspirin (Ecotrin*) 81 MG TABLET.DR 1 Tablet ORAL DAILY Comments: DID NOT TAKE IN HOSPITAL Cannabis (Marijuana Oil) 1 amp AMP 1 Applicator ORAL As Directed as needed for SICKLE CELL ANEMIA Comments: DID NOT TAKE IN HOSPITAL Cyclobenzaprine HCl (Cyclobenzaprine HCl) 10 MG TABLET 1 Tablet ORAL EVERY 8 HOURS NEEDED as needed for PAIN Qty = 20 Comments: DID NOT TAKE IN HOSPITAL Start taking the following new medications: Azithromycin (Zithromax) 500 MG TABLET 1 Tablet ORAL DAILY Qty = 3 No Refills Instructions: . Comments: HAS NOT STARTED Attending MD Review Statement Documenting Attending: Annette Doty MD Other Findings: Patient is medically stable to be discharged today. Recommend follow-up with his primary care provider the next 1-2 weeks repeat chest x-ray to document resolution of previously noted findings.
--- NOTE | 2017-11-22 09:57 | PN- Att Addend ---
Attending Addendum Attending Brief Note Patient seen and examined. Resting comfortably not in any acute distress. No issues overnight. No new complaints this morning. Denies chest or shortness of breath. Denies cough. He is ambulating freely with no need of any assistive device. On examination he has adequate entry bilaterally with mild crackles in lung base. She is afebrile. Hemoglobin level has improved following transfusion 1 unit of blood yesterday. At this point he is medically stable to be discharged home. I recommended that he follow-up with his primary care provider in the next 1-2 weeks and he should have a repeat chest x-ray at that time. He has been receiving IV analgesics in the hospital. Is currently not requesting any analgesics to be discharged home. Patient apparently is on medical marijuana. He will follow-up with his sickle cell clinic at [facility].
--- NOTE | 2017-11-22 10:35 | PN- Housestaff ---
Subjective Follow-up For: Pneumonia/Acute chest syndrome in the setting of sickle cell crisis Tele-Events Since Last Visit: No telemetry events overnight, was maintaing NSR and therefore taken off tele Subjective: Patient was seen and examined sitting in chair today. No acute events overnight. He has no complaints and no new symptoms. He says he feels much better. He reports no pain in his shins today. He believes his breathing has improved for the most part with only slight difficulty breathing. Review of Systems Constitutional: Reports: see HPI. Objective Last 24 Hrs of Vital Signs/I&O Vital Signs Date Time Temp Pulse Resp B/P B/P Pulse O2 O2 Flow FiO2 Mean Ox Delivery Rate 11/22 0640 98.0 97 20 144/62 96 11/21 2021 98.3 102 20 142/60 96 Room Air 11/21 1709 97.8 112 18 144/70 94 Room Air Intake & Output 11/22 1600 11/22 0800 11/22 0000 Intake Total 110 340 Output Total Balance 110 340 Intake, IV 110 100 Intake, Oral 240 Physical Exam General Appearance: Alert, Oriented X3, Cooperative, Mild Distress Skin: No Rashes Skin Temp/Moisture Exam: Warm/Dry Sepsis Skin Exam (color): Normal for Ethnicity HEENT: Atraumatic, PERRLA, EOMI Neck: Supple, No JVD Cardiovascular: Normal S1, Normal S2 Lungs: Slight BL Diffuse Crackles Abdomen: Normal Bowel Sounds, Soft, No Tenderness Neurological: Normal Speech Extremities: No Edema, Normal Pulses Current Medications: Current Medications Sig/Jaquelin Start time Last Medication Dose Route Stop Time Status Admin Acetaminophen 1,000 MG .STK-MED ONE 11/22 0509 DC IV 11/22 0510 Acetaminophen 1,000 MG .STK-MED ONE 11/21 2208 DC IV 11/21 220 Acetaminophen 1,000 MG .STK-MED ONE 11/21 1627 DC IV 11/21 1628 Acetaminophen 1,000 MG Q6P PRN 11/18 2200 DCD 11/22 IV 0511 Azithromycin 500 MG 1700 11/19 1700 DCD 11/21 Sodium Chloride 250 ML IV 1647 Ceftriaxone Sodium 1,000 MG Q24H 11/19 1730 DCD 11/21 IV 1647 Folic Acid 1 MG DAILY 11/22 0900 DCD 11/22 PO 0855 Folic Acid 1 MG ONCE ONE 08/02 2245 DC PO 11/21 2245 Hydromorphone HCl 0.4 MG Q4P PRN 11/19 0145 DCD 11/22 IV 0330 Last 24 Hrs of Lab/Nicholas Results Last 24 Hrs of Labs/Mics: Laboratory Tests 11/22/17 0617: Anion Gap 10, Estimated GFR > 60, BUN/Creatinine Ratio 16.7, CBC w Diff MAN DIFF ORDERED, RBC 2.20 L, MCV 88.6, MCH 29.0, MCHC 32.7 L, RDW 19.6 H, MPV 8.5, Segmented Neutrophils 61, Lymphocytes 20 L, Monocytes 14 H, Eosinophils 5, Nucleated RBCs 3 H, Platelet Estimate INCREASED, Polychromasia 2+, Poikilocytosis 2+, Anisocytosis 1+ Assessment/Plan Assessment: 42-year-old male with past medical history of sickle cell disease, subarachnoid hemorrhage, brain aneurysm, and pulmonary hypertension, who was brought to the ED with the chief complaint of altered mental status, agitation and lethargy. Right lower lobe consolidation secondary to CAP/HCAP vs Possible acute chest syndrome with radiographic changes in the setting of acute on chronic sicke cell Anemia - Patient was afebrile yesterday - Last CXR : suspicious for acute on chronic obstructive lung disease with bibasilar opacities, right greater than left. Associated small bilateral pleural effusions are seen - Advised to follow up with PCP outpatient for CXR in 2 weeks - Pt mentions he has no PCP currently and therefore was given referral to Dr. Francis - Azithromycin PO 500 mg for 7 days Lower Extremity Pain in the Setting of Acute on Chronic Sickle Cell Anemia - pt reports that his pain is decreasing - pt was receiving IV pain medications during admission but feels does not need pain meds at home as he has his own medical [facility] pain regimen perscribedfrom another facility Anemia: (Resolving Hct today was 19.5 after being transfused 1 unit of blood yesterday) - Tachycardia has resolved (most likely 2/2 low H/H) - Advised to take Folic Acid 1 MG daily PO - Advised to follow up with [facility] and sickle cell clinic at [facility] within one week Problem List: 1. Pneumonia 2. 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
== END 2017-11-22 10:30 | DRG 193 ==
LOC: ERH 14:24 → ERHI 19:13 → CRI 19:13 → 1NO 19:13 → ENRESERV 11-19 01:11 → CRI 11-19 01:55 → ENTRNSPT 11-20 17:29 → EDTRNSPTSTS 11-20 17:55 → EDTRNSPT 11-20 17:55 → CMPTRNSPT 11-20 18:07 → 1NO 11-20 18:20 → ENTRNSPT 11-21 19:04 → EDTRNSPTSTS 11-21 19:32 → 2NA 11-21 19:41 → CMPTRNSPT 11-21 19:57 → ENPENDDIS 11-22 09:47 → 2NA 11-22 10:30
PROVIDERS: Internal Medicine Interventional Cardiology; Physician Assistant; Student in an Organized Health Care Education/Training Program
PROC: 30233N1 Transfusion of Nonautologous Red Blood Cells into Peripheral Vein, Percutaneous Approach (ICD-10-PCS; principal; 2017-11-19)
DX: J18.9 Pneumonia, unspecified organism (principal); D57.01 Hb-SS disease with acute chest syndrome; E87.1 Hypo-osmolality and hyponatremia; N17.9 Acute kidney failure, unspecified; G89.29 Other chronic pain; I10 Essential (primary) hypertension; I27.20 Pulmonary hypertension, unspecified; R94.31 Abnormal electrocardiogram [ECG] [EKG]; R50.81 Fever presenting with conditions classified elsewhere; Z88.8 Allergy status to other drugs, medicaments and biological substances
CPT/HCPCS: 1NSP; 2NASP; CCU; ERO; 36415; 36592; 71046; 80307; 81001; 82436; 83010; 86902; 86920; 86922; 87040; 87070; 87086; 87449; 87450; 93005; 93010; 96374; 96375; G0480; J0131; J0456; J0696; J0713; J3370; J3490; J7040; J7042; P9016